=== PATIENT | female | born 1935 ===

== ENCOUNTER 2018-09-20 13:05 | Emergency (ER) | payer MEDICARE ==
[2018-09-20 13:05] VITALS: BMI 34.4
[2018-09-20 13:09] VITALS: RESP 18
[2018-09-20] MEDS ORDERED: Hydrogen Peroxide 237 ML SOL TP STA (13:24)
[2018-09-20] MEDS ORDERED: Tetanus/Diphtheria Toxoids 0.5 ml Syringe IM ONE (13:25)
[2018-09-20] MEDS ORDERED: Hydrogen Peroxide 3% Soln (480ml) TP ONE (13:29)
--- NOTE | 2018-09-20 13:31 | ED PDOC ---
HPI: Trauma/Fall - HPI Time Seen by Provider: 09/20/18 13:13 Chief Complaint (Nursing): Trauma Chief Complaint (Provider): Fall, head injury History Per: Patient History/Exam Limitations: no limitations Onset/Duration Of Symptoms: Mins Injury Occurred (Timing): Just Before Arrival Location Of Injury: Right: Face, Left: Knee Associated Symptoms: denies: Dizziness, Dazed, LOC, Seizure, Memory Impairment Additional History Per: Patient Additional Complaint(s): 83yo female, with history of high cholesterol, hypertension, diabetes, comes to ER for evaluation of head, face and left knee injury s/p trip and fall. Patient states she was walking to her doctor's office with her son when she tripped and fell, injuring her head, face and knee. No loss of consciousness, nausea, weakness, dizziness. Patient also reports pain to her neck. No other complaints. No medications taken prior to arrival. PMD: Dr. Sinha [employer]: Dr. Cedeno Past Medical History Reviewed: Historical Data, Nursing Documentation, Vital Signs Vital Signs: Last Vital Signs Temp 99 F 09/20/18 13:06 Pulse 74 09/20/18 13:06 Resp 18 09/20/18 13:06 BP 150/66 09/20/18 13:06 Pulse Ox 96 09/20/18 13:06 Primary Care Provider: Giuspepe Cadena - Medical History PMH: Anxiety, Arthritis, Depression, HTN, Hypercholesterolemia, Malignancy ([place]) Denies: Chronic Kidney Disease - Surgical History Surgical History: Appendectomy, Cholecystectomy, Coronary Stent - Family History Family History: States: No Known Family Hx - Home Medications Home Medications: Ambulatory Orders Medication Instructions Recorded Amlodipine Besylate 10 mg PO DAILY 04/06/15 Clonazepam 0.25 mg PO BID PRN 04/06/15 Metoprolol Succinate XL [Toprol XL] 100 mg PO DAILY 04/06/15 Potassium Chloride [Klor-Con 10] 10 meq PO QOTHERDAY 04/06/15 Torsemide 5 mg PO QOTHERDAY 04/06/15 - Allergies Allergies/Adverse Reactions: Allergies Allergy/AdvReac Type Severity Reaction Status Date / Time No Known Allergies Allergy Verified 09/20/18 13:06 Review of Systems ROS Statement: Except As Marked, All Systems Reviewed And Found Negative Constitutional: Negative for: Fever, Chills Eyes: Negative for: Vision Change ENT: Positive for: Other (left facial injury) Musculoskeletal: Positive for: Neck Pain, Other (left knee pain) Neurological: Negative for: Weakness, Numbness, Headache Physical Exam - Reviewed Nursing Documentation Reviewed: Yes Vital Signs Reviewed: Yes - Physical Exam Appears: Positive for: Non-toxic Head Exam: Positive for: ATRAUMATIC, NORMAL INSPECTION, NORMOCEPHALIC Skin: Positive for: Normal Color, Warm, Dry Eye Exam: Positive for: EOMI, PERRL ENT: Positive for: Other (1x small laceration to left upper lip; 2x small lacerations to left chin with minimal active bleeding. No deformity to nose. No septal hematoma. No loose teeth. No maxillary tenderness) Neck: Positive for: Supple. Negative for: Normal (+ cervical spine midline tenderness) Cardiovascular/Chest: Positive for: Regular Rate, Rhythm, Chest Non Tender. Negative for: Tachycardia Respiratory: Positive for: Normal Breath Sounds. Negative for: Respiratory Distress Gastrointestinal/Abdominal: Positive for: Soft. Negative for: Tenderness Extremity: Positive for: Normal ROM (FROM of all extremities), Tenderness (mild tenderness to left anterior knee), Other (abrasions noted to anterior left knee). Negative for: Pedal Edema, Deformity Neurological/Psych: Positive for: Awake, Alert, Normal Tone, Symmetric/Intact Strength, Oriented (x 3) - ECG O2 Sat by Pulse Oximetry: 96 (RA) Pulse Ox Interpretation: Normal Medical Decision Making Medical Decision Making: Impression: Facial injury, neck pain, knee pain and head injury s/p fall Plan: -- XR left knee -- CT C-Spine -- CT Head w/o contrast -- CT Maxillofacial -- Tetanus booster Lacerations cleaned with sterile water, dermabond used to repair wounds with good approximation. Patient instructed on wound care. [id number] Patient's son at bedside, states she take aspirin daily. 1500 Patient signed out to Dr. Kent pending CT results, reassessment, and final disposition. ScribeAttestation: Documented byRazia Hood acting as a scribe for Renuka Ybarra MD. Provider ScribeAttestation: All medical record entries made by the Scribe were at my direction and personally dictated by me. I have reviewed the chart and agree that the record accurately reflects my personal performance of the history, physical exam, medical decision making, and the department course for this patient. I have also personally directed, reviewed, and agree with the discharge instructions and disposition. Disposition - Clinical Impression Clinical Impression: Head injury, Laceration - Patient ED Disposition Is Patient to be Admitted: Transfer of Care - Disposition Referrals: [facility] within [facility] [Outside] - 09/24/18 Disposition: Transfer of Care Disposition Time: 15:00 Condition: STABLE Additional Instructions: Return if not better in 3 days. Instructions: Laceration Repair With Glue (DC), Closed Head Injury Print Language: NEPALESE Patient Signed Over To: Wilber Kent
--- NOTE | 2018-09-20 15:09 | ED PDOC ---
- ECG O2 Sat by Pulse Oximetry: 96 (RA) Pulse Ox Interpretation: Normal Medical Decision Making Medical Decision Makin Patient signed out to me by Dr. Ybarra pending CT results, reassessment and disposition. 1542 CT Maxillofacial FINDINGS: NASAL BONES: Unremarkable. ORBITS: Unremarkable. PARANASAL SINUSES/ MASTOIDS: Clear. MAXILLA: Unremarkable. MANDIBLE/ TEMPOROMANDIBULAR JOINTS: Unremarkable. SKULL BASE: Unremarkable. TEMPORAL BONES: Middle ears and mastoid grossly unremarkable. OTHER FINDINGS: None. IMPRESSION: Unremarkable non contrast enhanced CT of the maxillofacial bones. CT Head FINDINGS: HEMORRHAGE: No intracranial hemorrhage. BRAIN: Stable age-related degenerative changes are identified comprised of limited diffuse cerebral atrophy chronic microangiopathy once again. No significant interval changes appreciated. There is no mass-effect in the interval or suspicious extra-axial collection with posterior fossa contents unremarkable, including the brainstem, with midline brain anatomy unremarkable once again. VENTRICLES: Unremarkable. No hydrocephalus. CALVARIUM: Unremarkable. PARANASAL SINUSES: Unremarkable as visualized. No significant inflammatory changes. MASTOID AIR CELLS: Unremarkable as visualized. No inflammatory changes. OTHER FINDINGS: None. IMPRESSION: Stable limited age-related neuro degenerative changes. No significant interval change from prior CT dated 03/07/2009. CT C-Spine FINDINGS: VERTEBRAE: No fracture. Normal cervical lordotic curvature is interrupted by minimal degenerative spondylolisthesis ease at C4-5, C5-6 and C6-7 as well as C7-T1, T1- 2 and T2-3. Age level, there is anterolisthesis of the cephalad vertebral body by 2 mm or less relative to the caudal vertebral body. C1-2 degenerative changes are relatively advanced with the articulation otherwise intact. Craniocervical junction is unremarkable. No destructive bony lesion. DISCS/SPINAL CANAL/NEURAL FORAMINA: No significant central canal stenosis although moderate degenerative neural foraminal stenoses are identified bilaterally at C3-4 and C4-5 and mild at C5-6 and C6-7. No gross disc herniation. Mild multilevel spondylosis appreciated at mid and inferior levels sparing the upper cervical spine. PARASPINAL SOFT TISSUES: Unremarkable. OTHER FINDINGS: None. IMPRESSION: No fracture. Numerous minimal spondylolisthesis are seen from C4-5 to see 7 T1 as well as the T1-2 and T2-3 on degenerative basis. Degenerative neural foraminal stenoses are variable and mid inferior cervical levels but no significant central stenosis is appreciated. 1552 Patient is awake, alert and oriented x 3. Tolerating PO without difficulty. Reviewed CT findings with patient, and is stable for discharge home. Informed to follow up with PMD in 2-3 days. Has capacity to make decisions. Ambulated with no issues. ScribeAttestation: Documented byRazia Hood acting as a scribe for Wilber Kent MD. Provider ScribeAttestation: All medical record entries made by the Scribe were at my direction and personally dictated by me. I have reviewed the chart and agree that the record accurately reflects my personal performance of the history, physical exam, medical decision making, and the department course for this patient. I have also personally directed, reviewed, and agree with the discharge instructions and disposition. Disposition Counseled Patient/Family Regarding: Studies Performed, Diagnosis, Need For Followup - Clinical Impression Clinical Impression: Head injury, Laceration - POA Present On Arrival: Falls Or Trauma - Disposition Referrals: [facility] [Outside] - 09/24/18 Disposition: Routine/Home Disposition Time: 15:52 Condition: STABLE Additional Instructions: Return if not better in 3 days. Instructions: Laceration Repair With Glue (DC), Closed Head Injury Print Language: WELSH
--- NOTE | 2018-09-20 15:20 | CT ---
Date of service: 09/20/2018 PROCEDURE: CT MAXILLOFACIAL BONES WITHOUT CONTRAST HISTORY: Fall COMPARISON: None available. TECHNIQUE: Contiguous axial CT images of the maxillofacial bones were obtained. Coronal and sagittal reformats were generated. Radiation dose: Total exam DLP = 1485.48 mGy-cm. This CT exam was performed using one or more of the following dose reduction techniques: Automated exposure control, adjustment of the mA and/or kV according to patient size, and/or use of iterative reconstruction technique. FINDINGS: NASAL BONES: Unremarkable. ORBITS: Unremarkable. PARANASAL SINUSES/ MASTOIDS: Clear. MAXILLA: Unremarkable. MANDIBLE/ TEMPOROMANDIBULAR JOINTS: Unremarkable. SKULL BASE: Unremarkable. TEMPORAL BONES: Middle ears and mastoid grossly unremarkable. OTHER FINDINGS: None. IMPRESSION: Unremarkable non contrast enhanced CT of the maxillofacial bones.
--- NOTE | 2018-09-20 15:26 | CT ---
Date of service: 09/20/2018 PROCEDURE: CT Cervical Spine without contrast HISTORY: Fall COMPARISON: None available. TECHNIQUE: Axial computed tomography images were obtained of the cervical spine without the use of intravenous contrast. Coronal and sagittal reformatted images were created and reviewed. Radiation dose: Total exam DLP = 665.26 mGy-cm. This CT exam was performed using one or more of the following dose reduction techniques: Automated exposure control, adjustment of the mA and/or kV according to patient size, and/or use of iterative reconstruction technique. FINDINGS: VERTEBRAE: No fracture. Normal cervical lordotic curvature is interrupted by minimal degenerative spondylolisthesis ease at C4-5, C5-6 and C6-7 as well as C7-T1, T1-2 and T2-3. Age level, there is anterolisthesis of the cephalad vertebral body by 2 mm or less relative to the caudal vertebral body. C1-2 degenerative changes are relatively advanced with the articulation otherwise intact. Craniocervical junction is unremarkable. No destructive bony lesion. DISCS/SPINAL CANAL/NEURAL FORAMINA: No significant central canal stenosis although moderate degenerative neural foraminal stenoses are identified bilaterally at C3-4 and C4-5 and mild at C5-6 and C6-7. No gross disc herniation. Mild multilevel spondylosis appreciated at mid and inferior levels sparing the upper cervical spine. PARASPINAL SOFT TISSUES: Unremarkable. OTHER FINDINGS: None. IMPRESSION: No fracture. Numerous minimal spondylolisthesis are seen from C4-5 to see 7 T1 as well as the T1-2 and T2-3 on degenerative basis. Degenerative neural foraminal stenoses are variable and mid inferior cervical levels but no significant central stenosis is appreciated.
--- NOTE | 2018-09-20 15:36 | CT ---
Date of service: 09/20/2018 PROCEDURE: CT HEAD WITHOUT CONTRAST. HISTORY: Fall COMPARISON: Unenhanced head CT 03/07/2009. TECHNIQUE: Axial computed tomography images were obtained through the head/brain without intravenous contrast. Radiation dose: Total exam DLP = 740.8 mGy-cm. This CT exam was performed using one or more of the following dose reduction techniques: Automated exposure control, adjustment of the mA and/or kV according to patient size, and/or use of iterative reconstruction technique. FINDINGS: HEMORRHAGE: No intracranial hemorrhage. BRAIN: Stable age-related degenerative changes are identified comprised of limited diffuse cerebral atrophy chronic microangiopathy once again. No significant interval changes appreciated. There is no mass-effect in the interval or suspicious extra-axial collection with posterior fossa contents unremarkable, including the brainstem, with midline brain anatomy unremarkable once again. VENTRICLES: Unremarkable. No hydrocephalus. CALVARIUM: Unremarkable. PARANASAL SINUSES: Unremarkable as visualized. No significant inflammatory changes. MASTOID AIR CELLS: Unremarkable as visualized. No inflammatory changes. OTHER FINDINGS: None. IMPRESSION: Stable limited age-related neuro degenerative changes. No significant interval change from prior CT dated 03/07/2009.
[2018-09-20 16:40] VITALS: BP 124/66; PULSE 72; TEMP 97.7
--- NOTE | 2018-09-20 17:32 | RAD ---
Date of service: 09/20/2018 PROCEDURE: Left Knee Radiographs. HISTORY: Posttraumatic pain. COMPARISON: None. TECHNIQUE: 2 views obtained. FINDINGS: BONES: Normal. No fracture. JOINTS: Mild patellofemoral degenerative change. JOINT EFFUSION: None. OTHER FINDINGS: None. IMPRESSION: No acute findings related to/ accounting for the clinical presentation.
[2018-09-25 21:34] VITALS: O2SAT 96
== END 2018-09-20 16:45 | disposition home or self-care (01) ==
LOC: H.ER 13:05
DX: S09.90XA Unspecified injury of head, initial encounter (principal); S01.81XA Laceration without foreign body of other part of head, initial encounter; W01.0XXA Fall on same level from slipping, tripping and stumbling without subsequent striking against object, initial encounter; Z86.59 Personal history of other mental and behavioral disorders; I10 Essential (primary) hypertension; Z95.5 Presence of coronary angioplasty implant and graft; E78.00 Pure hypercholesterolemia, unspecified; Z23 Encounter for immunization